=== PATIENT | female | born 1955 | race Caucasian/White ===

== ENCOUNTER 2024-02-04 21:30 | Emergency (ER) | payer MEDICARE, SELFPAY ==
[2024-02-04 21:48] VITALS: BP 166/94; PULSE 85; RESP 18; TEMP 36.8; O2SAT 92; BMI 21.6
--- NOTE | 2024-02-04 22:06 | CRLHL7_ITS ---
For Patients: As a result of the Century Cures Act, medical imaging exams and procedure reports are released immediately into your electronic medical record. You may view this report before your referring provider. If you have questions, please contact your health care provider. Indication: Recurrent UTIs, severe suprapubic pain Technique: CT through the abdomen and pelvis following 64 mL Isovue 370 IV contrast Comparison: CT abdomen and pelvis performed 01/12/2024 Findings: Lower chest: No acute abnormality appreciated. Hepatobiliary: No significant parenchymal abnormality is appreciated. Spleen: Unremarkable. Pancreas: No acute abnormality appreciated. Adrenal glands: No acute abnormality appreciated. Kidneys: No significant parenchymal abnormality appreciated. No visualized calculi. No hydronephrosis. Bowel: Partial colectomy. Small loop of redundant colon in the pelvis at the anastomosis is unchanged from prior study. No focal perienteric or pericolonic stranding is appreciated. The appendix is visualized and appears unremarkable. Vascular: Calcified and noncalcified atherosclerosis. Lymph nodes: No gross lymphadenopathy. Peritoneum: No free air. No free fluid. : No acute abnormality appreciated. Soft tissues: No acute abnormality appreciated. Bones: No acute fracture. No lytic or blastic lesion. Mild degenerative changes of the spine and pelvis. Impression: No acute findings appreciated to account for patient`s reported symptoms. Please note that all CT scans at this facility use dose modulation, iterative reconstruction, and/or weight-based dosing when appropriate to reduce radiation dose to as low as reasonably achievable. Dictated by Fran Marrero MD @ 02/04/2024 11:53:45 PM (Electronically Signed)
[2024-02-04 22:20] LABS: Appearance Urine Clear (Clear); Bilirubin Urine Negative (Negative); Blood Urine Negative (Negative); Color Urine Dark yellow (Yellow); Glucose Urine Negative (Negative); Ketones Urine Negative (Negative); Leukocyte Esterase Urine Negative (Negative); Nitrite Urine Positive (Negative); Protein Urine Negative (Negative); Urobilinogen Urine 0.2 (0.2-1.0); pH Urine 5.5 (5.0-8.5)
[2024-02-04 22:41] LABS: Basophils Absolute Auto 0.05 K/uL (0.00-0.30); Basophils Percent Auto 0.5 % (0.0-3.0); Eosinophils Absolute Auto 0.08 K/uL (0.00-0.50); Eosinophils Percent Auto 0.8 % (0.0-7.0); Hematocrit 40.5 % (33.0-51.0); Hemoglobin* 13.3 gm/dL (12.0-16.0); Immature Granulocytes Abs Auto 0.06 K/uL (0.00-0.30); Immature Granulocytes Pct Auto 0.6 %; Lymphocytes Percent Auto 19.8 % (20-44); Mean Corpuscular HGB Conc 33 gm/dL (32-36); Mean Corpuscular Hemoglobin 29 pg (26-34); Mean Corpuscular Volume 89 fL (80-100); Monocytes Percent Auto 6.3 % (0.0-11.0); Neutrophils Absolute Auto 6.88 K/uL (1.7-7.0); Platelet Count* 186 K/uL (140-440); Red Blood Count 4.56 m/uL (4.00-5.20); White Blood Count* 9.56 K/uL (4.50-11.00)
[2024-02-04 22:49] LABS: RBC Urine 0-2 (0-2); WBC Urine 0-2 (0-5)
[2024-02-04 22:56] LABS: Slide Review Reflex No
[2024-02-04 22:58] LABS: Chloride* 98 mmol/L (96-114); Potassium* 3.6 mmol/L (3.6-5.1); Sodium* 133 mmol/L (135-149)
[2024-02-04 23:01] LABS: Anion Gap 7 mEq/L (7-15); Blood Urea Nitrogen* 18 mg/dL (7-30); Carbon Dioxide* 28 mmol/L (20-32); Creatinine* 0.7 mg/dL (0.5-1.5); Est. Creatinine Clearance* 49.12; Estimated Glomerular Filt Rate 95 ml/min
[2024-02-04 23:02] LABS: Calcium* 9.8 mg/dL (8.4-10.6); Glucose* 116 mg/dL (60-115)
--- NOTE | 2024-02-05 00:31 | ED_ITS ---
HPI - Female Genitourinary General Date Seen: 02/05/24 Chief complaint: Urogenital Problems, Female Stated complaint: Seen in [facility] yesterday, bladder pain Time Seen by Provider: 02/04/24 21:33 Source: patient Mode of arrival: ambulatory Limitations: no limitations History of Present Illness HPI Narrative: Patient is a 68-year-old female presenting to emergency department for suprapubic pain and dysuria. She was previously diagnosed with the UTI back around [facility]. Spent 1 night in the hospital and was discharged on antibiotics. Was doing well until yesterday when she started having suprapubic pain and dysuria again. Went to an outside hospital which she was started on Levaquin for a UTI again. She states she has previously prescribed oxycodone for the pain associated with her UTI and initially it helped quite a bit she only take 1 every day at most. She states now her leftover oxycodone from her 1st UTI is not managing her symptoms anymore and she is concerned infection is getting worse. States she has previously taking azo which did help but she was told it can interfere with the urinalysis so she stopped taking it. Denies fevers, chills, chest pain, shortness of breath, diarrhea, constipation, lightheadedness, dizziness, weakness. States the pain is currently tolerable could she took an oxycodone at 20:00. Related Data Allergies Allergy/AdvReac Type Severity Reaction Status Date / Time No Known Drug Allergies Allergy Verified 02/04/24 23:24 Review of Systems Status of ROS: Reports: 10 or more systems reviewed and unremarkable except as noted in History and below PFSH PFSH Social History Smoking Status: Current some day smoker How often do you have a drink containing alcohol: never AUDIT-C Alcohol total score: 0 Non-prescribed substance use: denies use service: No Exam Narrative: Exam Narrative: Const: Well-nourished, Well-developed, in mild distress Eyes: PERRL, no conjunctival injection, and symmetrical lids HENT: Atraumatic external nose and ears. Moist mucous membranes. Neck: Symmetric, trachea midline, No thyromegaly. CVS: RRR, No murmurs or gallops. Peripheral pulses 2+ and equal in all extremities RESP: Unlabored respiratory effort. Clear to auscultation bilaterally. GI: suprapubic tenderness, Nondistended, No rebound or guarding. MSK:Extremities w/o deformity, Normal Active ROM Skin: Warm, Dry. No rashes or lesions. Neuro: Normal Muscle tone, No focal neurological deficits. Psych: Awake, Alert, & Oriented x3. Appropriate mood and affect. Const: Vital Signs, click to edit/add: Vital Signs - 24 hr 02/04/24 21:48 Temperature 98.3 F Pulse Rate [Right Pulse Oximeter] 85 Respiratory Rate 18 Blood Pressure [Ri ght Upper Arm] 166/94 H Pulse Oximetry 92 Oxygen Delivery Me thod Room Air Course Vital Signs Vital signs: Initial Vital Signs Temperature 98.3 F 02/04/24 21:48 Temperature Source Temporal Artery Scan 02/04/24 21:48 Pulse Rate 85 02/04/24 21:48 Pulse Rhythm Regular 02/04/24 21:48 Respiratory Rate 18 02/04/24 21:48 Blood Pressure 166/94 H 02/04/24 21:48 Blood Pressure Mean 118 H 02/04/24 21:48 Blood Pressure Position Sitting 02/04/24 21:48 Pulse Oximetry 92 02/04/24 21:48 Oxygen Delivery Method Room Air 02/04/24 21:48 Vital Signs Temperature 98.3 F 02/04/24 21:48 Pulse Rate 85 02/04/24 21:48 Respiratory Rate 18 02/04/24 21:48 Blood Pressure 166/94 H 02/04/24 21:48 Pulse Oximetry 92 02/04/24 21:48 Oxygen Delivery Method Room Air 02/04/24 21:48 Temperature 98.3 F 02/04/24 21:48 Pulse Rate 85 02/04/24 21:48 Respiratory Rate 18 02/04/24 21:48 Blood Pressure 166/94 H 02/04/24 21:48 Pulse Oximetry 92 02/04/24 21:48 Oxygen Delivery Method Room Air 02/04/24 21:48 MDM - Female Genitourinary MDM Narrative Medical decision making narrative: Patient is a 68-year-old female presenting for suprapubic pain and concerns of UTI. Will recheck a urinalysis. Will also do a CBC, BMP. Considering her symptoms are worsening I will do a CT scan to look for signs of worsening intra- abdominal issues. Pain is tolerable at this time. Lab work shows signs of a UTI with positive nitrites. CBC shows no concerning abnormalities. BMP shows no concerning abnormalities. I did look in epic and does not show any culture results yet. CT scan reviewed by myself the radiologist shows no acute concerning abnormalities. She states her pain does seem like it is starting to come back. Will give her a dose of Toradol. She states has helped her in the past. Informed that she should start taking azo again. Will also give her prescription of Toradol through [facility] and a short prescription of oxycodone. I informed her to only use the oxycodone she absolutely needs it and informed her to stick to the Toradol an azo. She states she understands. Lab Data Labs: Lab Results 02/04/24 02/04/24 Range/Units 22:12 22:30 WBC 9.56 (4.50-11.00) K/uL RBC 4.56 (4.00-5.20) m/uL Hgb 13.3 (12.0-16.0) gm/dL Hct 40.5 (33.0-51.0) % MCV 89 (80-100) fL MCH 29 (26-34) pg MCHC 33 (32-36) gm/dL RDW Coeff of Sirena 12.0 (11.5-15.5) % Plt Count 186 (140-440) K/uL Neut % (Auto) 72.0 (42.0-72.0) % Lymph % (Auto) 19.8 L (20-44) % [place] % (Auto) 6.3 (0.0-11.0) % Eos % (Auto) 0.8 (0.0-7.0) % Baso % (Auto) 0.5 (0.0-3.0) % Neut # (Auto) 6.88 (1.7-7.0) K/uL Lymph # (Auto) 1.90 (0.90-2.90) K/uL [place] # (Auto) 0.60 (0.00-0.90) K/UL Eos # (Auto) 0.08 (0.00-0.50) K/uL Baso # (Auto) 0.05 (0.00-0.30) K/uL Abs Immat Gran (auto) 0.06 (0.00-0.30) K/uL Imm/Tot Granulo (auto) 0.6 % Sodium 133 L (135-149) mmol/L Potassium 3.6 (3.6-5.1) mmol/L Chloride 98 (96-114) mmol/L Carbon Dioxide 28 (20-32) mmol/L Anion Gap 7 (7-15) mEq/L BUN 18 (7-30) mg/dL Creatinine 0.7 (0.5-1.5) mg/dL Estimated Creat Clear 49.12 Estimated GFR 95 ml/min Glucose 116 H (60-115) mg/dL Calcium 9.8 (8.4-10.6) mg/dL Urine Color Dark yellow (Yellow) Urine Appearance Clear (Clear) Urine pH 5.5 (5.0-8.5) Ur Specific [place] 1.020 (1.000-1.030) Urine Protein Negative (Negative) Urine Glucose (UA) Negative (Negative) Urine Ketones Negative (Negative) Urine Blood Negative (Negative) Urine Nitrite Positive A (Negative) Urine Bilirubin Negative (Negative) Urine Urobilinogen 0.2 (0.2-1.0) Ur Leukocyte Esterase Negative (Negative) Urine RBC 0-2 (0-2) Urine WBC 0-2 (0-5) Ur Squamous Epith Cells None (None-Few) Urine Bacteria None (None) Imaging Data CT scan abdomen pelvis: Attestation: I have reviewed the pertinent imaging results. Radiologist's impression: No acute findings appreciated to account for patient`s reported symptoms. Please note that all CT scans at this facility use dose modulation, iterative reconstruction, and/or weight-based dosing when appropriate to reduce radiation dose to as low as reasonably achievable. Dictated by Fran Marrero MD @ 02/04/2024 11:53:45 PM Discharge Plan Discharge Clinical Impression: Urinary tract infection Qualifiers: Urinary tract infection type: site unspecified Hematuria presence: without hematuria Qualified Code(s): N39.0 - Urinary tract infection, site not specified Patient Disposition: Home, Self-Care Condition: Stable Instructions: Urinary Tract Infection in Women (DC) Additional Instructions: Use the Toradol as needed for pain along with azo. If that is not helping he can try the oxycodone. Is important that if symptoms persist you follow-up with your primary care provider. We will be unable to prescribe any further narcotics through this emergency department. Follow Up/Referrals: Ibis Tariq DO [Primary Care Provider] - Stand Alone Forms: [employer] Info Instructions
[2024-02-05 01:01] VITALS: PULSE 88; RESP 20; TEMP 36.7
== END 2024-02-05 01:08 | disposition home or self-care (01) ==
PROVIDERS: Emergency Provider Student in an Organized Health Care Education/Training Program; PCP Family Medicine
DX: N39.0 Urinary tract infection, site not specified (principal)
CPT/HCPCS: 36415; 74177; 80048; 81001; 85025; 87086; 99284; 99285; Q9967